=== PATIENT | male | born 1970 | race Caucasian/White ===

== ENCOUNTER 2018-12-14 09:47 | Emergency (ER) | payer OTHER ==
[~2018-12-14] VITALS: Ht 180.3 cm; Wt 122.7 kg
[2018-12-14 10:30] LABS: BASO # 0.1 x10^3/uL (0.0-0.2); BASO % 1 % (0-3); EOS % 0 % (0-3); HEMATOCRIT 42.1 % (39.0-53.0); HEMOGLOBIN 14.3 g/dL (13.0-17.5); LYMPH # 0.6 x10^3/uL (1.0-4.8); LYMPH % 8 % (24-48); MEAN CORPUSCULAR HEMOGLOBIN 29 pg (25-35); MEAN CORPUSCULAR HGB CONC 34 g/dL (31-37); MEAN CORPUSCULAR VOLUME 85 fL (79-100); MONO # 0.4 x10^3/uL (0.0-1.1); MONO % 5 % (0-9); NEUT # 6.7 x10^3uL (1.8-7.7); NEUT % 86 % (31-73); PLATELET COUNT 214 x10^3/uL (140-400); RED BLOOD COUNT 4.94 x10^6/uL (4.30-5.70); RED CELL DISTRIBUTION WIDTH 14.7 % (11.5-14.5); WHITE BLOOD COUNT 7.8 x10^3/uL (4.0-11.0)
--- NOTE | 2018-12-14 10:30 | EKG ---
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
[2018-12-14 10:45] LABS: ALBUMIN 4.4 g/dL (3.4-5.0); ALBUMIN/GLOBULIN RATIO 1.1 (1.0-1.7); CALCIUM 9.5 mg/dL (8.5-10.1); CREATININE 1.1 mg/dL (0.7-1.3); GFR 71.1; POTASSIUM 4.2 mmol/L (3.5-5.1); TOTAL BILIRUBIN 2.7 mg/dL (0.2-1.0); TOTAL PROTEIN 8.3 g/dL (6.4-8.2)
--- NOTE | 2018-12-14 10:52 | RAD ---
Chest, PA and Lateral: Technique: PA and lateral views of the chest were obtained. History: Chest pain. Comparison: None. Findings: Mild cardiomegaly. There is minimal prominent appearing bilateral interstitial lung markings likely mild congestive changes. Mild degenerative changes thoracic spine. IMPRESSION: Mild prominent bilateral interstitial lung markings likely mild congestive changes. Electronically signed by: Des Aceves MD (12/14/2018 10:49 AM) [place] [id number]
[2018-12-14] MEDS ORDERED: IOHEXOL 300 MG/ML 75 ML VIAL. IV ONE (11:00)
--- NOTE | 2018-12-14 11:10 | PHYS DOC ---
Past History Past Medical History: Hypertension Past Surgical History: Other Alcohol Use: None Drug Use: None Adult General Chief Complaint Chief Complaint: ABDOMINAL PAIN HPI HPI 48-year-old male presents with low back pain and abdominal pain. The patient has had low back pain recently after work. 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 He is being seen by his PCP for this. He comes in today because the pain has radiated around to his epigastric area. His PCP sent him here because he is concerned this could be cardiac. The patient has a family history of cardiac disease a young age. The patient tells me that the epigastric pain is a deep squeezing. It is intermittent. He has not had pain like this before. He denies shortness of breath or diaphoresis. He does not complain specifically of chest pain. He has been told in the past that he had a swollen liver, but this was thought to be due to a medication. He no longer takes his medication. No other history of gallbladder or liver disease. Review of Systems Review of Systems Constitutional: Denies fever or chills [] Eyes: Denies change in visual acuity, redness, or eye pain [] HENT: Denies nasal congestion or sore throat [] Respiratory: Denies cough or shortness of breath [] Cardiovascular: No additional information not addressed in HPI [] GI: Epigastric abdominal pain. Denies nausea, vomiting, bloody stools or diarrhea [] : Denies dysuria or hematuria [] Musculoskeletal: Low back pain[] Integument: Denies rash or skin lesions [] Neurologic: Denies headache, focal weakness or sensory changes [] Endocrine: Denies polyuria or polydipsia [] All other systems were reviewed and found to be within normal limits, except as documented in this note. Current Medications Current Medications Current Medications Medications (Trade) Dose Ordered Sig/Gilberto Start Time Stop Time Status Last Admin Dose Admin Iohexol (Omnipaque 300 Mg/ml) 75 ml 1X ONCE 12/14/18 11:00 12/14/18 11:01 DC 12/14/18 11:00 75 ML Allergies Allergies Allergies Coded Allergies Type Severity Reaction Last Updated Verified shrimp Allergy Mild VOMITING 12/14/18 Yes Physical Exam Physical Exam Constitutional: Well developed, well nourished, no acute distress, non-toxic appearance. [] HENT: Normocephalic, atraumatic, bilateral external ears normal, oropharynx moist, no oral exudates, nose normal. [] Eyes: PERRLA, EOMI, conjunctiva normal, no discharge. [] Neck: Normal range of motion, no tenderness, supple, no stridor. [] Cardiovascular:Heart rate regular rhythm, no murmur [] Lungs & Thorax: Bilateral breath sounds clear to auscultation [] Abdomen: Bowel sounds normal, soft, epigastric tenderness, no masses, no pulsatile masses. [] Skin: Warm, dry, no erythema, no rash. [] Back: No tenderness, no CVA tenderness. [] Extremities: No tenderness, no cyanosis, no clubbing, ROM intact, no edema. [] Neurologic: Alert and oriented X 3, normal motor function, normal sensory function, no focal deficits noted. [] Psychologic: Affect normal, judgement normal, mood normal. [] Current Patient Data Vital Signs Vital Signs Date Time Temp Pulse Resp B/P (MAP) Pulse Ox O2 Delivery O2 Flow Rate FiO2 12/14/18 10:01 98.0 61 18 97 Room Air Lab Results Laboratory Tests Test 12/14/18 10:05 White Blood Count 7.8 x10^3/uL (4.0-11.0) Red Blood Count 4.94 x10^6/uL (4.30-5.70) Hemoglobin 14.3 g/dL (13.0-17.5) Hematocrit 42.1 % (39.0-53.0) Mean Corpuscular Volume 85 fL (79-100) Mean Corpuscular Hemoglobin 29 pg (25-35) Mean Corpuscular Hemoglobin Concent 34 g/dL (31-37) Red Cell Distribution Width 14.7 % (11.5-14.5) H Platelet Count 214 x10^3/uL (140-400) Neutrophils (%) (Auto) 86 % (31-73) H Lymphocytes (%) (Auto) 8 % (24-48) L Monocytes (%) (Auto) 5 % (0-9) Eosinophils (%) (Auto) 0 % (0-3) Basophils (%) (Auto) 1 % (0-3) Neutrophils # (Auto) 6.7 x10^3uL (1.8-7.7) Lymphocytes # (Auto) 0.6 x10^3/uL (1.0-4.8) L Monocytes # (Auto) 0.4 x10^3/uL (0.0-1.1) Eosinophils # (Auto) 0.0 x10^3/uL (0.0-0.7) Basophils # (Auto) 0.1 x10^3/uL (0.0-0.2) Sodium Level 140 mmol/L (136-145) Potassium Level 4.2 mmol/L (3.5-5.1) Chloride Level 104 mmol/L (98-107) Carbon Dioxide Level 26 mmol/L (21-32) Anion Gap 10 (6-14) Blood Urea Nitrogen 15 mg/dL (8-26) Creatinine 1.1 mg/dL (0.7-1.3) Estimated GFR (Cockcroft-Gault) 71.1 BUN/Creatinine Ratio 14 (6-20) Glucose Level 154 mg/dL (70-99) H Calcium Level 9.5 mg/dL (8.5-10.1) Total Bilirubin 2.7 mg/dL (0.2-1.0) H Aspartate Amino Transferase (AST) 182 U/L (15-37) H Alanine Aminotransferase (ALT) 200 U/L (16-63) H Alkaline Phosphatase 186 U/L (46-116) H Troponin I Quantitative 0.063 ng/mL (0-0.055) H Total Protein 8.3 g/dL (6.4-8.2) H Albumin 4.4 g/dL (3.4-5.0) Albumin/Globulin Ratio 1.1 (1.0-1.7) EKG EKG Sinus rhythm, normal axis, no ST elevations or depressions.[] Radiology/Procedures Radiology/Procedures [] Impressions: Chest, PA and Lateral: Technique: PA and lateral views of the chest were obtained. History: Chest pain. Comparison: None. Findings: Mild cardiomegaly. There is minimal prominent appearing bilateral interstitial lung markings likely mild congestive changes. Mild degenerative changes thoracic spine. IMPRESSION: Mild prominent bilateral interstitial lung markings likely mild congestive changes. Electronically signed by: Des Aceves MD (12/14/2018 10:49 AM) [place] [id number] DICTATED AND SIGNED BY: DES ACEVES MD DATE: 12/14/18 1049 CC: WILDA BLAKE MD; DARIO EDWARD DO ~ CT of the abdomen and pelvis with contrast 12/14/2018 INDICATION: Abdominal pain COMPARISON STUDY: None TECHNIQUE: Multidetector CT imaging of the abdomen pelvis is obtained following the administration of IV contrast. FINDINGS: Partially visualized lung bases demonstrate no gross abnormality. There is significant intrahepatic biliary ductal dilatation. There is prominent dilatation of the common bile duct measuring up to 1.7 cm. The gallbladder appears mildly distended. A definitive calcified stone within the common bile duct is not identified. No definitive filling defect is seen though this exam is particularly limited for this purpose. Choledocholithiasis, malignant or benign stricture is also possible. The right adrenal gland is normal. There is a 3 cm mass in the left adrenal gland. The attenuation characteristics are nonspecific. The spleen is unremarkable in appearance. The kidneys demonstrate no acute abnormalities. The pancreas is grossly unremarkable. Evaluation of stomach and bowel is limited secondary to lack of enteric contrast. No evidence of obstruction is seen. No gross abnormalities are identified. The appendix is unremarkable mild anterior bladder wall thickening is seen which is nonspecific. No free fluid or free air seen in the abdomen or pelvis.Degenerative changes of the thoracic spine are noted. No acute osseous abnormalities are seen. IMPRESSION: 1. Intrahepatic and extra hepatic biliary dilatation with dilatation of the common bile duct. No overt filling defect is seen, though exam is limited for this purpose. Choledocholithiasis not excluded. Both benign and malignant processes cannot be excluded on the basis of this study. MRCP or ERCP recommended for further characterization. Correlation with serum bilirubin levels may be helpful. 2. 3 cm left adrenal mass, nonspecific based on this exam alone. MRI could also be performed for evaluation of this process. CT DOSING PQRS STATEMENT: One or more of the following individualized dose reduction techniques were utilized for this examination: 1. Automated exposure control 2. Adjustment of the mA and/or kV according to patient size 3. Use of iterative reconstruction technique Electronically signed by: Surjit Day MD (12/14/2018 11:15 AM) [facility] DICTATED AND SIGNED BY: SURJIT DAY MD DATE: 12/14/18 [id number] CC: WILDA BLAKE MD; DARIO EDWARD DO ~ Course & Med Decision Making Course & Med Decision Making Pertinent Labs and Imaging studies reviewed. (See chart for details) The patient's labs showed significant elevation of his liver enzymes. The patient also had an elevated troponin. His EKG was unremarkable. His chest x-ray showed possible congestion. His CT scan showed dilation of the common bile duct and possible obstruction. See official read for details. There were several other incidental findings. I discussed the patient with Dr. France and he has recommended transferring the patient to [facility]. He has agreed to be the admitting physician. The patient is in agreement with this plan. He will go by ambulance. [] Dragon Disclaimer Dragon Disclaimer This electronic medical record was generated, in whole or in part, using a voice recognition dictation system. Departure Departure: Impression: Primary Impression: Biliary obstruction Additional Impressions: Chest pain Elevated troponin Disposition: 02 XFER SHT-TRM HOSP Condition: GUARDED Referrals: WILDA BLAKE MD (PCP) Problem Qualifiers Additional Impressions: Chest pain Chest pain type: precordial pain Qualified Codes: R07.2 - Precordial pain DARIO EDWARD DO Dec 14, 2018 11:10
--- NOTE | 2018-12-14 11:18 | RAD ---
CT of the abdomen and pelvis with contrast 12/14/2018 INDICATION: Abdominal pain COMPARISON STUDY: None TECHNIQUE: Multidetector CT imaging of the abdomen pelvis is obtained following the administration of IV contrast. FINDINGS: Partially visualized lung bases demonstrate no gross abnormality. There is significant intrahepatic biliary ductal dilatation. There is prominent dilatation of the common bile duct measuring up to 1.7 cm. The gallbladder appears mildly distended. A definitive calcified stone within the common bile duct is not identified. No definitive filling defect is seen though this exam is particularly limited for this purpose. Choledocholithiasis, malignant or benign stricture is also possible. The right adrenal gland is normal. There is a 3 cm mass in the left adrenal gland. The attenuation characteristics are nonspecific. The spleen is unremarkable in appearance. The kidneys demonstrate no acute abnormalities. The pancreas is grossly unremarkable. Evaluation of stomach and bowel is limited secondary to lack of enteric contrast. No evidence of obstruction is seen. No gross abnormalities are identified. The appendix is unremarkable mild anterior bladder wall thickening is seen which is nonspecific. No free fluid or free air seen in the abdomen or pelvis.Degenerative changes of the thoracic spine are noted. No acute osseous abnormalities are seen. IMPRESSION: 1. Intrahepatic and extra hepatic biliary dilatation with dilatation of the common bile duct. No overt filling defect is seen, though exam is limited for this purpose. Choledocholithiasis not excluded. Both benign and malignant processes cannot be excluded on the basis of this study. MRCP or ERCP recommended for further characterization. Correlation with serum bilirubin levels may be helpful. 2. 3 cm left adrenal mass, nonspecific based on this exam alone. MRI could also be performed for evaluation of this process. CT DOSING PQRS STATEMENT: One or more of the following individualized dose reduction techniques were utilized for this examination: 1. Automated exposure control 2. Adjustment of the mA and/or kV according to patient size 3. Use of iterative reconstruction technique Electronically signed by: Surjit Phipps MD (12/14/2018 11:15 AM) [facility]
[2018-12-14 11:30] LABS: BACTERIA,URINE FEW /HPF (0-FEW); BILIRUBIN,URINE SMALL (NEG); CLARITY,URINE CLOUDY; COLOR,URINE AMBER; GLUCOSE,URINE NEG (NEG); NITRITE,URINE NEG (NEG); RBC,URINE RARE /HPF (0-2); SQUAMOUS EPITHELIAL CELL,UR FEW /LPF; UROBILINOGEN,URINE 4 mg/dL (0.2 mg/dL); WBC,URINE OCC /HPF (0-4)
[2018-12-14] MEDS ORDERED: ASPIRIN 81 MG TAB.CHEW PO ONE (12:00)
[2018-12-14 12:02] VITALS: BP 168/84
[2018-12-14] MEDS ORDERED: MORPHINE SULFATE 4 MG/ML DISP.SYRIN. IV ONE (12:50)
== END 2018-12-14 14:25 | disposition short-term general hospital (02) ==
LOC: ER 09:47
DX: K83.1 Obstruction of bile duct (principal); R07.2 Precordial pain; R79.89 Other specified abnormal findings of blood chemistry; I10 Essential (primary) hypertension; Z91.013 Allergy to seafood
CPT/HCPCS: 36415; 71046; 74177; 80053; 81001; 83690; 83880; 84484; 85025; 93005; 96374; 99285; J2270; Q9967